=== PATIENT | female | born 1945 | race Caucasian/White ===

== ENCOUNTER 2017-12-11 20:02 | Emergency (ER) | payer MEDICARE, OTHER ==
[~2017-12-11] VITALS: Ht 152.4 cm; Wt 90.7 kg
[~2017-12-11 20:02] MED LIST: AMLODIPINE BESYL5 MG; HYDROCHLOROTHIA25 M1; LEXAPRO20 MG
[2017-12-11] MEDS ORDERED: EXELON1 EAC1 (20:25)
[2017-12-11] MEDS ORDERED: CARAFATE 1 GM TA1 G1 (20:26)
[2017-12-11] MEDS ORDERED: MEMANTINE HCL E28 MG (20:26)
[2017-12-11] MEDS ORDERED: ZANTAC 150MG T150 M1 PO (20:26)
[2017-12-11 21:36] LABS: URINE BILIRUBIN NEGATIVE (Negative); URINE BLOOD 3+ (Negative); URINE CLARITY TURBID; URINE COLOR YELLOW; URINE GLUCOSE-RANDOM NEGATIVE (Negative); URINE KETONES TRACE (Negative); URINE LEUKOCYTES-REFLEX TRACE (Negative); URINE NITRITE-REFLEX NEGATIVE (Negative); URINE PROTEIN TRACE (Negative); URINE SPECIFIC GRAVITY >= 1.030 (1.005-1.030)
[2017-12-11 21:50] LABS: ABSOLUTE EOSINOPHILS 0.2 thou/uL (0.0-0.7); ABSOLUTE LYMPHOCYTES 0.9 thou/uL (0.8-5.3); ABSOLUTE MONOCYTES 0.7 thou/uL (0.0-1.2); ABSOLUTE NEUTROPHILS 3.1 thou/uL (1.6-8.1); EOSINOPHILS 3.6 %; HEMATOCRIT 43.1 % (37.0-47.0); HEMOGLOBIN 14.4 gm/dL (12.0-15.0); LYMPHOCYTES 18.6 %; MCH 29.9 pg (26.0-34.0); MCHC 33.3 g/dL (28.0-37.0); MCV 89.6 fL (80.0-100.0); MPV 8.1 fl. (7.2-11.1); NUCLEATED RBCS 0 /100WBC; PLATELET COUNT* 257 thou/uL (150-400); POLYS 62.8 %; RBC 4.81 mil/uL (4.20-5.00); RDW-CV 13.8 % (10.5-14.5); WBC 4.9 thou/uL (4.0-11.0)
[2017-12-11 21:53] LABS: SQUAMOUS >10 Many /LPF (0-3)
[2017-12-11 21:54] LABS: CALCIUM 8.8 mg/dL (8.5-10.1); CREATININE 0.9 mg/dL (0.6-1.3); POTASSIUM 4.2 mmol/L (3.5-5.1)
[2017-12-11 21:54] LABS: BACTERIA-REFLEX >30 Many /HPF (None Seen); URINE WBC-REFLEX >25 Many /HPF (0-5)
[2017-12-11 21:55] LABS: CASTS None Seen /LPF (None Seen); CRYSTALS None Seen /LPF (None Seen); MUCUS >6 Heavy strn/LPF (None Seen)
[2017-12-11 21:59] LABS: ALBUMIN 3.5 g/dL (3.4-5.0); TOTAL BILIRUBIN 0.2 mg/dL (<0.1-1.0); TOTAL PROTEIN 7.2 g/dL (6.4-8.2)
[2017-12-11] MEDS ORDERED: KEFLEX500 M1 PO (22:28)
[2017-12-11] MEDS ORDERED: LEVAQUIN 500 M500 M4 PO (23:08)
[2017-12-11 23:35] VITALS: BP 197/76
== END 2017-12-11 23:36 | disposition home or self-care (01) ==
LOC: M.ERS 20:02
PROVIDERS: Personal Emergency Response Attendant
DX: N39.0 Urinary tract infection, site not specified (principal); I10 Essential (primary) hypertension; F41.9 Anxiety disorder, unspecified; K21.9 Gastro-esophageal reflux disease without esophagitis; F03.90 Unspecified dementia, unspecified severity, without behavioral disturbance, psychotic disturbance, mood disturbance, and anxiety; Z90.710 Acquired absence of both cervix and uterus; Z88.2 Allergy status to sulfonamides

== ENCOUNTER 2018-05-21 00:28 | Emergency (ER) | payer MEDICARE, OTHER ==
[~2018-05-21] VITALS: Ht 157.5 cm; Wt 96.1 kg
[~2018-05-21 00:28] MED LIST changes: +CARAFATE 1 GM TA1 G1; +EXELON1 EAC1; +KEFLEX500 M1 PO; +LEVAQUIN 500 M500 M4 PO; +MEMANTINE HCL E28 MG; +ZANTAC 150MG T150 M1 PO
[2018-05-21] MEDS ORDERED: NORVASC5 M1 (00:38)
[2018-05-21] MEDS ORDERED: HYDROCHLOROTH12.5 M1 (00:40)
[2018-05-21] MEDS ORDERED: LEXAPRO5 MG (00:40)
[2018-05-21] MEDS ORDERED: AZITHROMYCIN 2250 MG (00:42)
[2018-05-21] MEDS ORDERED: TUSSIN CF COUG118 M2 (00:42)
[2018-05-21] MEDS ORDERED: MUCINEX100 MG (00:42)
[2018-05-21 01:00] LABS: HEMATOCRIT 39.5 % (37.0-47.0); HEMOGLOBIN 13.2 gm/dL (12.0-15.0); MCH 29.9 pg (26.0-34.0); MCHC 33.4 g/dL (28.0-37.0); MCV 89.7 fL (80.0-100.0); MPV 8.2 fl. (7.2-11.1); NUCLEATED RBCS 0 /100WBC; PLATELET COUNT* 223 thou/uL (150-400); RDW-CV 13.4 % (10.5-14.5); WBC 5.4 thou/uL (4.0-11.0)
[2018-05-21 01:03] LABS: ANION GAP 6 mmol/L (7-16); BUN 12 mg/dL (7-18); CALCIUM 8.3 mg/dL (8.5-10.1); CHLORIDE 101 mmol/L (98-107); CO2 28 mmol/L (21-32); CREATININE 0.8 mg/dL (0.6-1.3); GLUCOSE 106 mg/dL (70-99); SODIUM 135 mmol/L (136-145)
[2018-05-21 01:06] LABS: PROTIME 10.2 Seconds (9.20-11.50)
[2018-05-21 01:17] LABS: ALBUMIN 3.3 g/dL (3.4-5.0); ALKALINE PHOSPHATASE 115 U/L (46-116); LIPASE 90 U/L (73-393); NT-PRO BRAIN NAT PEPTIDE 189 pg/mL (<300); SGOT 13 U/L (15-37); SGPT 19 U/L (30-65); TOTAL BILIRUBIN 0.6 mg/dL (<0.1-1.0); TOTAL PROTEIN 6.7 g/dL (6.4-8.2); TROPONIN-I LEVEL <0.06 ng/mL (<0.06)
[2018-05-21 02:52] LABS: URINE BILIRUBIN NEGATIVE (Negative); URINE BLOOD NEGATIVE (Negative); URINE CLARITY CLEAR; URINE COLOR YELLOW; URINE GLUCOSE-RANDOM NEGATIVE (Negative); URINE KETONES NEGATIVE (Negative); URINE LEUKOCYTES-REFLEX NEGATIVE (Negative); URINE NITRITE-REFLEX NEGATIVE (Negative); URINE PROTEIN NEGATIVE (Negative); URINE UROBILINOGEN 0.2 E.U./dl (0.2-1.0)
[2018-05-21] MEDS ORDERED: PROAIR HFA8.5 GM INH (03:10)
[2018-05-21 03:25] VITALS: BP 125/89
[2018-05-21 03:47] LABS: ABSOLUTE BASOPHILS 0.1 thou/uL (0.0-0.2); ABSOLUTE LYMPHOCYTES 0.5 thou/uL (0.8-5.3); ABSOLUTE MONOCYTES 0.6 thou/uL (0.0-1.2); ABSOLUTE NEUTROPHILS 4.2 thou/uL (1.6-8.1)
[2018-05-21 03:48] LABS: PLATELET ESTIMATE ADEQUATE
== END 2018-05-21 03:25 | disposition home or self-care (01) ==
LOC: M.ERS 00:28
PROVIDERS: Emergency Medicine
DX: J06.9 Acute upper respiratory infection, unspecified (principal); R41.82 Altered mental status, unspecified; I10 Essential (primary) hypertension; F41.9 Anxiety disorder, unspecified; K21.9 Gastro-esophageal reflux disease without esophagitis; F03.90 Unspecified dementia, unspecified severity, without behavioral disturbance, psychotic disturbance, mood disturbance, and anxiety; Z85.43 Personal history of malignant neoplasm of ovary; Z90.710 Acquired absence of both cervix and uterus; Z88.2 Allergy status to sulfonamides

== ENCOUNTER 2018-05-24 09:32 | Emergency (ER) | payer MEDICARE, OTHER ==
[~2018-05-24] VITALS: Ht 157.5 cm; Wt 90.7 kg
[~2018-05-24 09:32] MED LIST changes: +AZITHROMYCIN 2250 MG; +HYDROCHLOROTH12.5 M1; +LEXAPRO5 MG; +MUCINEX100 MG; +NORVASC5 M1; +PROAIR HFA8.5 GM INH; +TUSSIN CF COUG118 M2
[2018-05-24 10:55] LABS: ABSOLUTE BASOPHILS 0.1 thou/uL (0.0-0.2); ABSOLUTE EOSINOPHILS 0.2 thou/uL (0.0-0.7); ABSOLUTE LYMPHOCYTES 0.8 thou/uL (0.8-5.3); ABSOLUTE MONOCYTES 0.4 thou/uL (0.0-1.2); ABSOLUTE NEUTROPHILS 3.6 thou/uL (1.6-8.1); BASOPHILS 1.3 %; EOSINOPHILS 4.3 %; HEMATOCRIT 41.6 % (37.0-47.0); HEMOGLOBIN 13.8 gm/dL (12.0-15.0); LYMPHOCYTES 15.3 %; MCH 29.8 pg (26.0-34.0); MCHC 33.3 g/dL (28.0-37.0); MCV 89.5 fL (80.0-100.0); MONOCYTES 8.3 %; MPV 8.6 fl. (7.2-11.1); NUCLEATED RBCS 0 /100WBC; PLATELET COUNT* 270 thou/uL (150-400); POLYS 70.8 %; RBC 4.65 mil/uL (4.20-5.00); RDW-CV 13.6 % (10.5-14.5); WBC 5.1 thou/uL (4.0-11.0)
[2018-05-24 11:05] LABS: CALCIUM 8.6 mg/dL (8.5-10.1); CREATININE 0.6 mg/dL (0.6-1.3); POTASSIUM 3.4 mmol/L (3.5-5.1)
[2018-05-24 11:09] LABS: ALBUMIN 3.4 g/dL (3.4-5.0); TOTAL BILIRUBIN 0.4 mg/dL (<0.1-1.0); TOTAL PROTEIN 6.4 g/dL (6.4-8.2)
[2018-05-24 11:51] VITALS: BP 174/92
== END 2018-05-24 11:52 | disposition home or self-care (01) ==
LOC: M.ERS 09:32
PROVIDERS: Nurse Practitioner Family
DX: R05 Cough (principal); R79.9 Abnormal finding of blood chemistry, unspecified; I10 Essential (primary) hypertension; F41.9 Anxiety disorder, unspecified; K21.9 Gastro-esophageal reflux disease without esophagitis; F03.90 Unspecified dementia, unspecified severity, without behavioral disturbance, psychotic disturbance, mood disturbance, and anxiety; Z90.710 Acquired absence of both cervix and uterus; Z85.43 Personal history of malignant neoplasm of ovary; Z88.2 Allergy status to sulfonamides

== ENCOUNTER 2019-02-17 13:45 | Emergency (ER) | payer MEDICARE, OTHER ==
[~2019-02-17] VITALS: Ht 147.3 cm; Wt 72.6 kg
[2019-02-17 14:36] LABS: ABSOLUTE BASOPHILS 0.1 thou/uL (0.0-0.2); ABSOLUTE EOSINOPHILS 0.3 thou/uL (0.0-0.7); ABSOLUTE LYMPHOCYTES 0.7 thou/uL (0.8-5.3); ABSOLUTE NEUTROPHILS 6.4 thou/uL (1.6-8.1); BASOPHILS 1.2 %; EOSINOPHILS 3.1 %; HEMATOCRIT 44.2 % (37.0-47.0); HEMOGLOBIN 15.3 gm/dL (12.0-15.0); LYMPHOCYTES 8.5 %; MCH 30.5 pg (26.0-34.0); MCHC 34.7 g/dL (28.0-37.0); MCV 87.9 fL (80.0-100.0); MONOCYTES 12.2 %; MPV 8.1 fl. (7.2-11.1); NUCLEATED RBCS 0 /100WBC; PLATELET COUNT* 273 thou/uL (150-400); RBC 5.03 mil/uL (4.20-5.00); RDW-CV 13.4 % (10.5-14.5); WBC 8.5 thou/uL (4.0-11.0)
[2019-02-17 14:36] LABS: URINE BILIRUBIN NEGATIVE (Negative); URINE BLOOD 3+ (Negative); URINE CLARITY CLOUDY; URINE COLOR YELLOW; URINE GLUCOSE-RANDOM NEGATIVE (Negative); URINE KETONES NEGATIVE (Negative); URINE NITRITE-REFLEX NEGATIVE (Negative); URINE PROTEIN 3+ (Negative); URINE SPECIFIC GRAVITY >= 1.030 (1.005-1.030); URINE UROBILINOGEN 0.2 E.U./dl (0.2-1.0)
[2019-02-17 14:39] LABS: URINE LEUKOCYTES-REFLEX 2+ (Negative)
[2019-02-17 14:46] LABS: MUCUS None Seen strn/LPF (None Seen); SQUAMOUS >10 Many /LPF (0-3)
[2019-02-17 14:47] LABS: URINE WBC-REFLEX >25 Many /HPF (0-5)
[2019-02-17 14:47] LABS: ANION GAP 12 mmol/L (7-16); BUN 15 mg/dL (7-18); CALCIUM 8.7 mg/dL (8.5-10.1); CHLORIDE 108 mmol/L (98-107); CO2 26 mmol/L (21-32); CREATININE 0.9 mg/dL (0.6-1.3); GLUCOSE 112 mg/dL (70-99); POTASSIUM 3.6 mmol/L (3.5-5.1); SODIUM 146 mmol/L (136-145)
[2019-02-17 14:48] LABS: CASTS None Seen /LPF (None Seen); CRYSTALS None Seen /LPF (None Seen)
[2019-02-17 14:49] LABS: BACTERIA-REFLEX 1-9 Few /HPF (None Seen)
[2019-02-17 14:56] LABS: ALBUMIN 3.5 g/dL (3.4-5.0); ALKALINE PHOSPHATASE 123 U/L (46-116); LIPASE 94 U/L (73-393); SGOT 15 U/L (15-37); SGPT 23 U/L (30-65); TOTAL BILIRUBIN 0.4 mg/dL (<0.1-1.0); TOTAL PROTEIN 7.3 g/dL (6.4-8.2); TROPONIN-I LEVEL <0.06 ng/mL (<0.06)
[2019-02-17] MEDS ORDERED: KEFLEX500 M1 PO (15:01)
[2019-02-17] MEDS ORDERED: CITRATE OF MAG296 M1 PO (15:01)
[2019-02-17 15:44] VITALS: BP 136/84
== END 2019-02-17 15:45 | disposition home or self-care (01) ==
LOC: M.ERS 13:45
PROVIDERS: Emergency Medicine Emergency Medical Services
DX: K59.00 Constipation, unspecified (principal); N39.0 Urinary tract infection, site not specified; I10 Essential (primary) hypertension; F41.9 Anxiety disorder, unspecified; K21.9 Gastro-esophageal reflux disease without esophagitis; F03.90 Unspecified dementia, unspecified severity, without behavioral disturbance, psychotic disturbance, mood disturbance, and anxiety; Z88.2 Allergy status to sulfonamides; Z85.43 Personal history of malignant neoplasm of ovary; Z90.710 Acquired absence of both cervix and uterus

== ENCOUNTER 2020-09-16 02:02 | Inpatient (IN) | payer MEDICARE, OTHER ==
[~2020-09-16] VITALS: Ht 149.9 cm; Wt 71.8 kg
[~2020-09-16 02:02] MED LIST changes: +CITRATE OF MAG296 M1 PO
[2020-09-16 02:09] VITALS: BP 127/87
[2020-09-16] MEDS ORDERED: VITAMIN B-121000 MC2 SUBLING (02:16)
[2020-09-16] MEDS ORDERED: PRESERVISION A1 EAC2 PO (02:16)
[2020-09-16 02:46] LABS: ABSOLUTE BASOPHILS 0.1 thou/uL (0.0-0.2); ABSOLUTE EOSINOPHILS 0.2 thou/uL (0.0-0.7); ABSOLUTE LYMPHOCYTES 1.2 thou/uL (0.8-5.3); ABSOLUTE MONOCYTES 0.6 thou/uL (0.0-1.2); ABSOLUTE NEUTROPHILS 4.2 thou/uL (1.6-8.1); BASOPHILS 0.8 %; HEMOGLOBIN 16.5 gm/dL (12.0-15.0); LYMPHOCYTES 19.4 %; MCH 29.5 pg (26.0-34.0); MCHC 32.9 g/dL (28.0-37.0); MCV 89.7 fL (80.0-100.0); MONOCYTES 9.7 %; MPV 9.1 fl. (7.2-11.1); NUCLEATED RBCS 0 /100WBC; PLATELET COUNT* 252 thou/uL (150-400); POLYS 67.1 %; RBC 5.57 mil/uL (4.20-5.00); RDW-CV 14.6 % (10.5-14.5); WBC 6.3 thou/uL (4.0-11.0)
[2020-09-16 02:53] LABS: CALCIUM 9.8 mg/dL (8.5-10.1); CREATININE 0.5 mg/dL (0.6-1.3)
[2020-09-16 02:54] LABS: PROTIME 11.1 Seconds (9.20-11.50)
[2020-09-16 02:55] LABS: POTASSIUM 5.2 mmol/L (3.5-5.1)
[2020-09-16 03:03] LABS: ALBUMIN 3.7 g/dL (3.4-5.0); MAGNESIUM 2.2 mg/dL (1.8-2.4); TOTAL BILIRUBIN 0.7 mg/dL (<0.1-1.0); TOTAL PROTEIN 7.7 g/dL (6.4-8.2)
[2020-09-16 04:07] LABS: URINE BLOOD 2+ (Negative); URINE CLARITY CLEAR; URINE COLOR YELLOW; URINE GLUCOSE-RANDOM NEGATIVE (Negative); URINE KETONES 1+ (Negative); URINE PROTEIN 1+ (Negative); URINE SPECIFIC GRAVITY 1.025 (1.005-1.030)
[2020-09-16 04:13] LABS: ICTOTEST (BILI CONFIRMATORY) Negative (Negative); URINE BILIRUBIN 1+ (Negative); URINE LEUKOCYTES-REFLEX 2+ (Negative); URINE NITRITE-REFLEX POSITIVE (Negative)
[2020-09-16 04:22] LABS: BACTERIA-REFLEX >30 Many /HPF (None Seen); CASTS None Seen /LPF (None Seen); CRYSTALS None Seen /LPF (None Seen); MUCUS 0-3 Light strn/LPF (None Seen); SQUAMOUS 0-3 Few /LPF (0-3); URINE RBC 3-10 Few /HPF (0-2); URINE WBC-REFLEX 6-15 Few /HPF (0-5)
[2020-09-16 04:50] VITALS: BP 120/62
[2020-09-16 06:30] VITALS: BP 128/49
--- NOTE | 2020-09-16 07:22 | NUR ---
RECEIVED REPORT FROM ED RN. PT A&O1-2. CONFUSED. VSS. ADMISSION HISTORY & PHYSICAL ASSESSMENT COMPLETED AND CHARTED. PT ON RA. PT ON MEDSURG STATUS. PT ORIENTED TO ROOM & CALL LIGHT. FALL PRECAUTIONS IN PLACE. CALL LIGHT WITHIN REACH.
[2020-09-16 08:10] VITALS: BP 114/54
--- NOTE | 2020-09-16 13:40 | NUR ---
CM COMPELTED THE INITIAL ASSESSMENT W/PT'S SPOUSE, MELVI, PT PRESENTED CONFUSED AND PT WAS NOT RESPONDING TO CM QUESTIONS. PER MELVI, PT HAS ALZHEMIER'S DX. MELVI IS PT'S C/G. PT IS DEPENDENT ON ALL ADLS. PT WAS ABLE TO AMBULATE "IN THE PAST MONTH" BUT OF LATE PT HAS BEEN CHAIR TO BED BOUND. PT HAS W/C. MELVI HAD INFORMATIONAL WITH [facility] YESTERDAY. SERGIO SPK W/SHAUN WITH THE [facility] DEPT. PER SHAUN, [facility] RECEIVED THE ORDER FROM PT'S DR WATKINS, WELL CLINICAL INFO THAT THEY NEEDED AND SHAUN STATED SHE DID NOT NEED THIS CM TO SEND ANY ADD'L CLINICAL INFO. SHAUN STATED THE PLAN IS TO ADMIT PT AFTER D/C ONCE SHE RTRNS HOME. CM INFORMED MELVI IF HE NEEDED CM TO FAX ANYTHING TO HOSPICE AT D/C FEEL FREE TO REACHOUT. [facility] -[phone].
--- NOTE | 2020-09-16 14:19 | EKG ---
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: [place] : 1945 Requested By: Jesusita Jefferson Order Number: [id number] MD: Carlos Banegas Measurements Intervals [place] Rate: 90 P: 21 CA: 143 QRS: -20 QRSD: 82 T: 15 QT: 375 QTc: 459 Interpretive Statements Sinus rhythm Inferior infarct, old Delayed R wave progression compared to ECG 01/13/2012 11:47:52 Myocardial infarct finding now present ST (T wave) deviation no longer present Electronically Signed On 09-16-2020 14:19:13 CDT by Carlos Banegas [email or web address] <ELECTRONICALLY SIGNED> By: Carlos Banegas MD, FACC 09/16/20 1419 6 6 Carlos Banegas MD, FACC /EPI
[2020-09-16 16:45] VITALS: BP 125/71
--- NOTE | 2020-09-16 18:45 | NUR ---
ASSUMED CARE OF PT AT 0730. PT ORIENTED X 1, CONFUSED AND LETHARGIC. AT BEDSIDE THROUGHOUT SHIFT AND UPDATED ON CURRENT PLAN OF CARE. PER PT - PT "HAS EPISODES LIKE THIS AT HOME WHERE SHE IS IN AND OUT DUE TO HER ADVANCED DEMENTIA". MED SURG STATUS., ON RA SAT UPPER 90'S. PT DOES NOT APPEAR TO BE IN ANY PAIN. PT UP WITH MAX ASSIST OF 2. PT WORKED WITH PT AND UP TO CHAIR-TOLERATED FAIR-PT MAX ASSIST X 2 TO GET BACK IN BED. IVF. PT INCONT OF BOWEL AND BLADDER. PT REQUIRES ASSIST WITH ALL MEALS. AM ASSESSMENT CHARTED. MEDICATIONS PER MAR. HOURLY ROUNDING OBSERVED. BED IN LOW POSITION. BED ALARM IN PLACE. FALL PRECAUTIONS IN PLACE. CALL LIGHT WITHIN REACH. WILL CONTINUE PLAN OF CARE.
[2020-09-16 19:40] VITALS: BP 111/60
[2020-09-17 00:03] VITALS: BP 117/83
[2020-09-17 04:14] LABS: HEMATOCRIT 35.7 % (37.0-47.0); MCH 30.1 pg (26.0-34.0); MCHC 33.8 g/dL (28.0-37.0); MCV 89.1 fL (80.0-100.0); RBC 4.01 mil/uL (4.20-5.00); RDW-CV 14.5 % (10.5-14.5); WBC 3.3 thou/uL (4.0-11.0)
[2020-09-17 04:24] LABS: HEMOGLOBIN 12.1 gm/dL (12.0-15.0)
[2020-09-17 04:29] LABS: ALBUMIN 2.4 g/dL (3.4-5.0); CALCIUM 8.2 mg/dL (8.5-10.1); CREATININE 0.5 mg/dL (0.6-1.3); MAGNESIUM 1.7 mg/dL (1.8-2.4); TOTAL BILIRUBIN 0.4 mg/dL (<0.1-1.0); TOTAL PROTEIN 5.1 g/dL (6.4-8.2)
[2020-09-17 05:19] VITALS: BP 108/52
[2020-09-17 08:00] VITALS: BP 131/58
--- NOTE | 2020-09-17 15:17 | NUR ---
PLAN OF CARE: PHYSICIAN INFORMS THAT THE PT MAY NEED LTC AT D/C. CM SPOKE TO THE PT'S SPOUSE TO DISCUSS THIS. PT'S SPOUSE CONFIRMS THAT HE HAS BEEN TAKING CARE OF THE PT AT HOME 20/12. HOWEVER HE IS NO LONGER ABLE TO DO THIS AND REQUEST LTC AT [facility] WITH HOSPICE. HE HAD PLANNED FOR HER TO ADMIT TO HOSPICE AT D/C HER PCP HAD ORDERED IT PRIOR TO ADMIT. PT'S SPOUSE INFORMS THAT HE IS AWARE THAT HE WILL NEED TO PAY [id number] FOR LTC. CM FAXED INTIAL REFERRAL TO [facility], AND INFORMED THEM OF THE NEED TO CONTACT THE PT'S SPOUSE TO DISCUSS FURTHER. CM WILL REMAIN AVAILABLE TO ASSIST AND FOLLOW NEEDED.
[2020-09-17 16:12] VITALS: BP 114/86
[2020-09-17 20:00] VITALS: BP 120/74
[2020-09-18] VITALS: BP 137/98
[2020-09-18 05:21] LABS: HEMATOCRIT 36.6 % (37.0-47.0); HEMOGLOBIN 12.1 gm/dL (12.0-15.0); MCH 29.5 pg (26.0-34.0); MCV 89.4 fL (80.0-100.0); MPV 9.2 fl. (7.2-11.1); RBC 4.09 mil/uL (4.20-5.00); RDW-CV 14.8 % (10.5-14.5); WBC 4.1 thou/uL (4.0-11.0)
[2020-09-18 05:37] LABS: CALCIUM 8.3 mg/dL (8.5-10.1); CREATININE 0.4 mg/dL (0.6-1.3); MAGNESIUM 1.9 mg/dL (1.8-2.4); POTASSIUM 3.3 mmol/L (3.5-5.1)
[2020-09-18 08:00] VITALS: BP 137/91
--- NOTE | 2020-09-18 09:06 | NUR ---
PATIENT HAS SLEPT OFF AND ON DURING THE NIGHT. VSS ON RA. MEDICATIONS GIVEN ORDERED AND CHARTED. PATIENT INCONTINENT OF BLADDER AND HARPER CARE PERFORMED. PATIENT TURN SELF IN BED. IV IN LEFT AC-NS @ 70ML/HR. FALL PRECAUTIONS IN PLACE AND HOURLY ROUNDS MADE. WILL CONTINUE WITH PLAN OF CARE AND NURSING TO MONITOR.
--- NOTE | 2020-09-18 13:28 | NUR ---
SERGIO spoke with , informed that [facility] does not have any LTC beds, informed that [facility] does. now asking if SNF is an option. SERGIO spoke with , PT gian ordered, spoke with Cherri at [facility], they do have a SNF bed available for tomorrow. Faxed referral, await PT assessment to determine if Pt would be able to tolerate SNF. Following.
[2020-09-18 16:03] VITALS: BP 131/59
--- NOTE | 2020-09-18 17:42 | NUR ---
PT RESTING ON BED AT HER SIDE. VSS AFEBRILE. SPOUCE SPOKE TO SW AND NOW WANTS PT TO GO TO REHAB THEN BACK HOME. SALINE LOCK IN LEFT FOREARM FLUSHES WELL, IV FLUIDS INFUSING WITH OUT DIFFICULTY. WILL CONTINUE TO MONITOR PLAN OF CARE.
[2020-09-18 21:39] VITALS: BP 145/78
[2020-09-19 03:57] LABS: HEMOGLOBIN 12.7 gm/dL (12.0-15.0); MCH 29.9 pg (26.0-34.0); MCHC 33.3 g/dL (28.0-37.0); MCV 89.8 fL (80.0-100.0); RBC 4.23 mil/uL (4.20-5.00); RDW-CV 14.6 % (10.5-14.5); WBC 4.4 thou/uL (4.0-11.0)
--- NOTE | 2020-09-19 04:04 | NUR ---
PT CONFUSED, ORIENTED TO HERSELF ONLY. VSS ON RA. INCONTINENT. PT PULLED HER IV OUT, NEW IV INSERTED. TURNS, HOURLY ROUNDINGS COMPLETED. BED ALARM ON FOR SAFETY. IVF INFUISING. WILL CONTINUE TO MONITOR.
[2020-09-19 04:10] LABS: CALCIUM 8.6 mg/dL (8.5-10.1); CREATININE 0.4 mg/dL (0.6-1.3); POTASSIUM 3.3 mmol/L (3.5-5.1)
[2020-09-19 08:05] VITALS: BP 112/89
[2020-09-19] MEDS ORDERED: CEFDINIR300 MG PO (09:54)
--- NOTE | 2020-09-19 11:52 | NUR ---
Pt discharging to [facility] today, faxed dc orders and [id number] form. Chart copied. Nurse report number is [phone]. Ambulance to [facility] and transport at 3pm. in room and is in agreement with POC.
--- NOTE | 2020-09-19 20:11 | NUR ---
Pt oriented to self and did not know more than the month of her birthday. Pt drowsy and not wanting to keep eyes open. Pt denies any pain. Pt's at the bedside for part of the day. Pt discharged to [facility] via ambulance. Pt here at time of discharge and following ambulance to facility. Report called to facility at 1450. Pt left at approximately 1530.
== END 2020-09-19 15:30 | DRG 689 ==
LOC: M.ERS 02:02 → M.TBA-ER 04:15 → M.ORTHSURG 04:50 → M.2W 05:06 → M.ORTHSURG 09-17 19:05
PROVIDERS: Emergency Medicine; Family Medicine; ADMIT Internal Medicine; ATTEND Internal Medicine
DX: N30.01 Acute cystitis with hematuria (principal); G92 Toxic encephalopathy; F02.81 Dementia in other diseases classified elsewhere, unspecified severity, with behavioral disturbance; R65.10 Systemic inflammatory response syndrome (SIRS) of non-infectious origin without acute organ dysfunction; I10 Essential (primary) hypertension; F41.9 Anxiety disorder, unspecified; K21.9 Gastro-esophageal reflux disease without esophagitis; G30.1 Alzheimer's disease with late onset; B96.89 Other specified bacterial agents as the cause of diseases classified elsewhere; E66.9 Obesity, unspecified; Z20.822 Contact with and (suspected) exposure to COVID-19; B96.20 Unspecified Escherichia coli [E. coli] as the cause of diseases classified elsewhere; E87.6 Hypokalemia; Z79.899 Other long term (current) drug therapy; Z90.710 Acquired absence of both cervix and uterus; Z85.43 Personal history of malignant neoplasm of ovary; Z88.2 Allergy status to sulfonamides; Z68.32 Body mass index [BMI] 32.0-32.9, adult

== ENCOUNTER 2020-10-07 21:04 | Inpatient (IN) | payer MEDICARE, OTHER ==
[~2020-10-07] VITALS: Ht 152.4 cm; Wt 69.2 kg
[~2020-10-07 21:04] MED LIST changes: +CEFDINIR300 MG PO; +PRESERVISION A1 EAC2 PO; +VITAMIN B-121000 MC2 SUBLING
[2020-10-07 21:07] VITALS: BP 166/96
[2020-10-07 22:06] LABS: CALCIUM 8.8 mg/dL (8.5-10.1); CREATININE 0.5 mg/dL (0.6-1.3); POTASSIUM 3.5 mmol/L (3.5-5.1)
[2020-10-07 22:10] LABS: ABSOLUTE BASOPHILS 0.1 thou/uL (0.0-0.2); ABSOLUTE EOSINOPHILS 0.2 thou/uL (0.0-0.7); ABSOLUTE LYMPHOCYTES 1.1 thou/uL (0.8-5.3); ABSOLUTE MONOCYTES 0.6 thou/uL (0.0-1.2); ABSOLUTE NEUTROPHILS 3.7 thou/uL (1.6-8.1); BASOPHILS 1.3 %; EOSINOPHILS 3.3 %; HEMATOCRIT 40.7 % (37.0-47.0); HEMOGLOBIN 13.7 gm/dL (12.0-15.0); LYMPHOCYTES 18.8 %; MCH 30.4 pg (26.0-34.0); MCHC 33.6 g/dL (28.0-37.0); MCV 90.5 fL (80.0-100.0); MONOCYTES 10.8 %; MPV 7.8 fl. (7.2-11.1); NUCLEATED RBCS 0 /100WBC; PLATELET COUNT* 280 thou/uL (150-400); POLYS 65.8 %; RDW-CV 15.3 % (10.5-14.5); WBC 5.6 thou/uL (4.0-11.0)
[2020-10-07 22:11] LABS: ALBUMIN 3.2 g/dL (3.4-5.0); TOTAL BILIRUBIN 0.5 mg/dL (<0.1-1.0); TOTAL PROTEIN 6.6 g/dL (6.4-8.2)
[2020-10-07] MEDS ORDERED: FAMOTIDINE 40 M40 M1 PO (22:25)
[2020-10-07 22:50] LABS: URINE BILIRUBIN NEGATIVE (Negative); URINE BLOOD NEGATIVE (Negative); URINE CLARITY SL CLOUDY; URINE COLOR YELLOW; URINE GLUCOSE-RANDOM NEGATIVE (Negative); URINE KETONES TRACE (Negative); URINE NITRITE-REFLEX NEGATIVE (Negative); URINE PROTEIN NEGATIVE (Negative); URINE SPECIFIC GRAVITY 1.025 (1.005-1.030); URINE UROBILINOGEN 0.2 E.U./dl (0.2-1.0)
[2020-10-07 22:51] LABS: URINE LEUKOCYTES-REFLEX 3+ (Negative)
[2020-10-07 22:59] LABS: HYALINE CASTS 0-3 Few /LPF (None Seen); MUCUS >6 Heavy strn/LPF (None Seen); SQUAMOUS 4-10 Moderate /LPF (0-3)
[2020-10-07 23:00] LABS: BACTERIA-REFLEX >30 Many /HPF (None Seen); URINE WBC-REFLEX >25 Many /HPF (0-5); WBC CLUMPS Few (None Seen)
[2020-10-07 23:01] LABS: CRYSTALS None Seen /LPF (None Seen); URINE RBC None Seen /HPF (0-2); YEAST-REFLEX Present (None Seen)
[2020-10-08] VITALS (7 sets, daily range): BP systolic 122–150; BP diastolic 64–94
[2020-10-08] MEDS ORDERED: SENNA PLUS TAB1 EACH PO (01:51)
--- NOTE | 2020-10-08 02:39 | NUR ---
PT ADMIT TO ROOM 222 AT 0140 ACCOMPANIED BY . FLUCONAZOL ORDERED STAT IN ED AT 2315. WAITING FOR MEDICATION. ANSWERED ADMISSION QUESTIONS. PT ALERT ORIENTED TO NAME ONLY. PT WILL NEED TO BE A FEED. RASH ON FAISAL BUTTOCKS PICTURED. MED/SURG STATUS.
--- NOTE | 2020-10-08 09:49 | NUR ---
ASSUMED CARE OF PT AT 0730. PT LYING IN BED. AT BEDSIDE AND UPDATED ON CURRENT PLAN OF CARE. A&0X1, FORGEFUL AND CONFUSED. DEMENITA NOTED. MED SURG STATUS. ON RA SAT UPPER 90'S. DENIES ANY PAIN OR SHORTNESS OF BREATH. PT INCONT OF BOWEL AND BLADDER. PT UP WITH MAX ASSIST. PT REQUIRES ASSIST WITH MEALS. PT GOAL FOR TODAY IS INCREASE ACTIVITY, MONITOR LABS AND INITIATE IV ABX. AM ASSESSMENT CHARTED. MEDICATIONS PER JUL. PT REPOSITIONED EVERY 2 HOURS FOR COMFORT. HOURLY ROUNDING OBSERVED. BED IN LOW POSITION. BED ALARM IN PLACE. FALL PRECAUTIONS IN PLACE. CALL LIGHT WITHIN REACH. WILL CONTINUE PLAN OF CARE.
--- NOTE | 2020-10-08 11:35 | NUR ---
cm s/w pt spouse, latoya, d/t pt's cognitive deficit. pt present with limited verbal ability. pt has poor memory and dementia dx. pt lives home with spouse. spouse assist with all adls. pt has private c/g through "[facility]" 4hr/day. pt does not ambulate and uses a w/c. latoya is in the process of moving pt to ltc, he has been working with lynette ken at [facility]. latoya asked this cm to fax any info [facility] needs to assit with transition. polina spk with lynette who indicated they are considering accpeting pt, she asked for updated clinicals to be faxed. lynette will call cm back w/update as her case in still being reviewed. also, latoya stated pt is with hospice. he stated he was told pt would be d/c d/t hospitalization. polina contacted [facility], spk with juan. per juan, pt has not bee d/c as of yet. polina asked that hospice fax [facility]/ a revocation letter. eldon stated she will have pt's nurse, eldon contact cm.
[2020-10-09 04:00] VITALS: BP 144/60
[2020-10-09 04:24] LABS: ABSOLUTE EOSINOPHILS 0.2 thou/uL (0.0-0.7); ABSOLUTE LYMPHOCYTES 1.1 thou/uL (0.8-5.3); ABSOLUTE MONOCYTES 0.6 thou/uL (0.0-1.2); ABSOLUTE NEUTROPHILS 2.6 thou/uL (1.6-8.1); BASOPHILS 0.9 %; EOSINOPHILS 4.3 %; HEMATOCRIT 37.6 % (37.0-47.0); HEMOGLOBIN 12.8 gm/dL (12.0-15.0); LYMPHOCYTES 24.2 %; MCH 30.7 pg (26.0-34.0); MCHC 33.9 g/dL (28.0-37.0); MCV 90.5 fL (80.0-100.0); MPV 8.3 fl. (7.2-11.1); NUCLEATED RBCS 0 /100WBC; PLATELET COUNT* 254 thou/uL (150-400); POLYS 57.6 %; RBC 4.16 mil/uL (4.20-5.00); WBC 4.5 thou/uL (4.0-11.0)
[2020-10-09 04:33] LABS: CALCIUM 8.7 mg/dL (8.5-10.1); CREATININE 0.6 mg/dL (0.6-1.3); POTASSIUM 3.3 mmol/L (3.5-5.1)
--- NOTE | 2020-10-09 06:45 | NUR ---
Patient is drowsy but she does awaken easily. She is oriented x 1. She is very cooperative. Oral meds were crushed and placed in applesauce. Vital sisgns were stable and roomair sat 97%. Shehas been turned every 2 hours and she has been incontinent of urine. Fungal cream applied to reddened areas on periarea and buttocks. She denies pain and she has slept well.
[2020-10-09 08:00] VITALS: BP 116/83
--- NOTE | 2020-10-09 08:41 | NUR ---
WOUND NURSE: PATIENT SEEN TO ADDRESS HEALING REDDENED MACULAR RASH IN PERINEUM. PATIENT IS ALSO INCONTINENT. CLEANSED WITH PERINEAL WIPES. APPLIED Z-GUARD MIXED WITH NYSTATIN CREAM TOPICALLY TO THE AFFECTED AREA. PATIENT IS WITHOUT OPEN WOUNDS IDENTIFIED.
--- NOTE | 2020-10-09 11:40 | NUR ---
PLAN OF CARE: CM INFORMED BY PT'S SPOUSE OF PLAN FOR THE PT TO ADMIT TO [facility] AT D/C. CM SPOKE TO [facility] ADMISSIONS AND THEY CONFIRM THAT THE PT HAS BEEN ACCEPTED AND PT'S SPOUSE SIGNED PAPERWORK. [facility] UNABLE TO ACCEPT PT UNTIL TUESDAY (10/13/20). [facility] ADMISSIONS INFROMS THAT THE PT WILL NEED A RAPID COVID TEST PRIOR TO D/C (WITHIN 24 HRS OF D/C). CM FAXED PT'S CLINICAL INFO TO [facility]. HOSPICE ALSO REQUEST TO INFROMED AT D/C THE PT WAS ON-SERVICE WITH HOSPICE PRIOR TO ADMIT AND REVOKED HOSPICE TO COME TO THE HOSPITAL. CM WILL REMAIN AVAILABLE TO ASSIST AND FOLLOW NEEDED. [facility] PHONE: [phone] FAX: [phone]
--- NOTE | 2020-10-09 13:19 | NUR ---
Nutrition: Pt admitted with UTI. Consult received for UTI. Wt: 152#. H/o dementia, bedbound. Pt is too confused for conversation, so spoke with RN. 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 RD ordered Cranberry juice with BKFSTS to encourage good fluid intake. She is on regular diet. Albumin 3.2. Rash present. B12, MVI. No other nutrition interventions at this time. Consider mild risk.
[2020-10-09 16:00] VITALS: BP 126/68
[2020-10-09 20:00] VITALS: BP 144/70
[2020-10-10 00:35] VITALS: BP 115/68
--- NOTE | 2020-10-10 04:05 | NUR ---
PT CONFUSED, ON RA. INCONTINENT. TURNS COMPLETED. BED ALARM ON SAFETY. WILL CONTINUE TO MONITOR.
[2020-10-10 04:30] VITALS: BP 122/56
[2020-10-10 07:30] VITALS: BP 125/50
--- NOTE | 2020-10-10 13:19 | NUR ---
Plan is for Pt to dc to [facility] with Hospice. CM spoke with Frieda at Hospice, they are planning on seeing her once she gets to LTC on Tuesday. Hospice requesting that CM contact them to inform for dc time, once known p:[phone]. wants [facility] to provide dc transportation. Pt will need a rapid covid complete prior to dc on Tuesday. CM spoke with and he is in agreement with POC. [facility] p:[phone] f:[phone]
[2020-10-10 16:00] VITALS: BP 133/66
--- NOTE | 2020-10-10 18:28 | NUR ---
PT AWAKE/ALERT. CONFUSED. VSS. AT BEDSIDE, ASSISTED TO FEED MEALS TODAY. PT INCONTINENT OF B/B. Q2H TURNS FOR SKIN INTEGRITY. PT ON ROOM AIR. PT SWALLOWS PILLS WHOLE. PT RESTS IN BED WITH CALL LIGHT IN REACH. WILL CONTINUE TO MONITOR. [facility]
[2020-10-10 21:00] VITALS: BP 127/75
[2020-10-11 04:43] LABS: MAGNESIUM 1.8 mg/dL (1.8-2.4); PHOSPHORUS* 3.4 mg/dL (2.5-4.9); POTASSIUM 3.5 mmol/L (3.5-5.1)
--- NOTE | 2020-10-11 06:00 | NUR ---
PATIENT SLEPT MOST OF THE NIGHT. PATIENT WAS TURNED EVERY TWO HOURS CHARTED. NO COMPLAINTS OF PAIN. BED ALARM REMAINS ON FOR PATIENT SAFETY. WILL CONTINUE TO MONITOR.
[2020-10-11 08:18] VITALS: BP 119/67
[2020-10-11] MEDS ORDERED: MACROBID 100 M100 M1 PO (11:56)
[2020-10-11] MEDS ORDERED: THERA M PLUS T1 EAC2 PO (11:56)
[2020-10-11] MEDS ORDERED: NYSTATIN15 G3 TOP (11:56)
[2020-10-11 16:00] VITALS: BP 131/79
--- NOTE | 2020-10-11 18:23 | NUR ---
PATIENT RESTING IN BED. DAUGHTER AT BEDSIDE, INVOLVED WITH CARES. ALERT AND ORIENTED X1. NYSTATIN CREAM APPLIED TO HARPER AREA ORDERED. NO IV ACCESS. BED IN LOW/LOCKED POSITION. SIDE RAILS UP X3. BED ALARM ON. NO C/O PAIN/DISCOMFORT. NO QUESTIONS OR CONCERNS VOICED.
[2020-10-11 21:37] VITALS: BP 137/93
[2020-10-11 22:15] VITALS: BP 137/93
--- NOTE | 2020-10-12 07:55 | NUR ---
PATIENT HAS SLEPT WELL THROUGHOUT THE NIGHT. VSS ON RA. MEDICATIONS GIVEN ORDERED. FALL PRECAUTIONS IN PLACE. PATIENT INCONTINENT OF URINE AND HARPER CARE PERFORMED. HOURLY ROUNDS MADE. WILL CONTINUE WITH PLAN OF CARE AND NURSING TO MONITOR.
[2020-10-12 08:00] VITALS: BP 127/73
--- NOTE | 2020-10-12 13:26 | NUR ---
THIS NURSE AGREES WITH ASSESSMENT
[2020-10-12 16:00] VITALS: BP 121/71
--- NOTE | 2020-10-12 18:46 | NUR ---
PATIENT RESTING IN BED. NO IV ACCESS. SKIN DRY AND INTACT. INCONTINENT TO URINE AND BOWEL. NEEDS HELP WITH EATING AND DRINKING. BED IN LOW/LOCKED POSITION, BED ALARM ON, SIDE RAILS UP X4. NO QUESTIONS OR CONCERNS VOICED.
[2020-10-12 22:00] VITALS: BP 139/67
--- NOTE | 2020-10-13 06:39 | NUR ---
PATIENT SLEPT WELL THROUGHOUT MOST OF THE NIGHT. VSS ON RA. MEDICATIONS GIVEN ORDERED AND CHARTED. ASSESSMENT CHARTED. PATIENT INCONTINENT OF BLADDER AND HARPER CARE PERFORMED. FALL PRECAUTIONS IN PLACE AND HOURLY ROUNDS MADE. WILL CONTINUE WITH PLAN OF CARE AND NURSING TO MONITOR.
[2020-10-13 10:26] VITALS: BP 115/40
--- NOTE | 2020-10-13 12:56 | NUR ---
SERGIO S/W HARLEEN @ [facility] IS ACCEPTING OF PT, AGREEABLE TO 1330 TRANSFER TIME. PT NOTIFIED. PT RN PROVIDED NUMBER TO CALL REPORT; [phone], 3S- ROOM 306, BED 2. SERGIO ARRANGED TRANSPORTATION VIA [facility], [facility] [phone] FOR 1330, MARIAN W/MOSES. US AGREED TO MAKE CHART COPY. SERGIO FAXED ORDERS TO [facility], MARIAN Miranda/XAVIER [phone] PHONE- [phone].
--- NOTE | 2020-10-13 14:28 | NUR ---
PT DC TO FACILITY BY AMBULANCE AT 1330. REPORT CALLED. NO IV. PERSONAL ITEMS SENT WITH PT.
== END 2020-10-13 14:32 | disposition hospice, home (50) | DRG 689 ==
LOC: M.ERS 21:04 → M.TBA-ER 10-08 00:33 → M.2W 10-08 00:33 → M.ORTHSURG 10-10 07:10
PROVIDERS: Internal Medicine; Personal Emergency Response Attendant; ADMIT Family Medicine; ATTEND Family Medicine
DX: N39.0 Urinary tract infection, site not specified (principal); G93.41 Metabolic encephalopathy; E44.0 Moderate protein-calorie malnutrition; I10 Essential (primary) hypertension; F41.9 Anxiety disorder, unspecified; L89.159 Pressure ulcer of sacral region, unspecified stage; K21.9 Gastro-esophageal reflux disease without esophagitis; B37.3 Candidiasis of vulva and vagina; G30.9 Alzheimer's disease, unspecified; F02.80 Dementia in other diseases classified elsewhere, unspecified severity, without behavioral disturbance, psychotic disturbance, mood disturbance, and anxiety; K59.00 Constipation, unspecified; R21 Rash and other nonspecific skin eruption; Z20.822 Contact with and (suspected) exposure to COVID-19; Z68.29 Body mass index [BMI] 29.0-29.9, adult; Z90.710 Acquired absence of both cervix and uterus; Z85.43 Personal history of malignant neoplasm of ovary; Z88.2 Allergy status to sulfonamides; Z79.899 Other long term (current) drug therapy